=== PATIENT | female | born 1945 ===

== ENCOUNTER 2017-01-26 08:46 | Day surgery (SDC) | payer MEDICARE, MEDICAID ==
[2017-01-26 10:10] VITALS: BMI 26.5
[2017-01-26] MEDS ORDERED: Propofol 10 mg/ml Inj (20 ML) ONE (12:00)
[2017-01-26 13:13] VITALS: TEMP 98.6; O2SAT 100
[2017-01-26 13:14] VITALS: RESP 18
[2017-01-26 14:21] VITALS: BP 148/63; PULSE 50
== END 2017-01-26 13:30 | disposition home or self-care (01) ==
LOC: C.ENDO 08:46
PROVIDERS: ATTEND Internal Medicine Gastroenterology
DX: D13.1 Benign neoplasm of stomach (principal); K29.50 Unspecified chronic gastritis without bleeding; K31.89 Other diseases of stomach and duodenum; R10.13 Epigastric pain
CPT/HCPCS: 43239; 88305; 88312; 88313; 88342; J2704